=== PATIENT | male | born 1975 | race Hispanic/Latino ===

== ENCOUNTER 2017-01-05 06:25 | Day surgery (SDC) | payer OTHER ==
[2017-01-05] MEDS ORDERED: HURRICAINE ONE 20% TOPICAL SPRAY MM (07:53)
[2017-01-05] MEDS ORDERED: VERSED IV ONE ×2 (07:53→09:00)
[2017-01-05] MEDS ORDERED: SUBLIMAZE ONE (07:54)
[2017-01-05] MEDS ORDERED: NACL 0.9% 500 ML 500 ML IV SCH (08:00)
[2017-01-05] MEDS ORDERED: HURRICAINE ONE 20% TOPICAL SPRAY MM NR (09:00)
[2017-01-05] MEDS ORDERED: SUBLIMAZE IV ONE (09:00)
--- NOTE | 2017-01-05 09:53 | Short Stay Summary ---
Short Stay Documentation Date of service: 01/05/17 - History Past Medical History: No medical history Past Surgical History: No surgical history Social history: no significant social history - Allergies and Medications Current Medications: Allergies No Known Allergies Allergy (Unverified 06/14/16 11:34) Active Medications Benzocaine (Hurricaine One 20% Topical [place]) 3 spray MM PREOP NR Stop: 01/05/17 10:00 Last Admin: 01/05/17 08:39 Dose: 3 spray Sodium Chloride (Nacl 0.9% 500 Ml) 500 mls @ 50 mls/hr IV DIRECT VIRIDIANA Last Admin: 01/05/17 08:00 Dose: 50 mls/hr - Physical exam General appearance: no acute distress Integumentary: no rash Lungs: Clear to auscultation Breasts: deferred Heart: Regular rate Gastrointestinal: normal Male Genitourinary: deferred Female Genitourinary: deferred Rectal Exam: deferred Extremities: no ischemia Neurological: Normal gait - Brief post op/procedure progress note Date of procedure: 01/05/17 Pre-op diagnosis: Valvular disease Post-op diagnosis: same Procedure: MARINA Anesthesia: MAC Findings: See report Surgeon: XIN MONACO Estimated blood loss: none Pathology: none Condition: stable - Hospital course Hospital course: Uneventful - Disposition Condition at discharge: Good Disposition: DC-01 TO HOME OR SELFCARE Short Stay Discharge Plan Activity: advance as tolerated Weight Bearing Status: Partial Weight Bearing Diet: regular Follow up with: ELENA GRACIA MD [Primary Care Provider] - 7 Days Forms: MARINA Discharge Form
[2017-01-05 11:45] VITALS: BP 109/76
== END 2017-01-05 11:55 | disposition home or self-care (01) ==
LOC: OPU 06:25
PROVIDERS: ATTEND Internal Medicine
DX: I08.0 Rheumatic disorders of both mitral and aortic valves (principal); Z95.2 Presence of prosthetic heart valve; Z82.49 Family history of ischemic heart disease and other diseases of the circulatory system; Z83.3 Family history of diabetes mellitus
CPT/HCPCS: 93312; 93320; 93325; J2250; J3010; J7040

== ENCOUNTER 2017-01-17 06:01 | Day surgery (SDC) | payer OTHER ==
[2017-01-17] MEDS ORDERED: ECOTRIN PO ONE (06:21)
[2017-01-17] MEDS ORDERED: NACL 0.9% 500 ML 500 ML ONE (06:24)
[2017-01-17 06:50] LABS: Basophils % (Auto) 0.4 % (0.0-1.8); Eosinophils % (Auto) 0.8 % (0.0-4.3); Hematocrit 44.8 % (35.5-45.6); Hemoglobin 15.5 gm/dl (11.8-15.2); Mean Corpuscular HGB Conc 35 % (32-34); Mean Corpuscular Hemoglobin 31 pg (28-32); Mean Corpuscular Volume 89 fl (84-94); Platelet Count 165 K/mm3 (140-440); Red Blood Count 5.06 M/mm3 (3.65-5.03); Red Cell Distribution Width 13.4 % (13.2-15.2); White Blood Count 7.1 K/mm3 (4.5-11.0)
[2017-01-17 07:00] LABS: INR 0.91 (0.87-1.13)
[2017-01-17] MEDS ORDERED: NACL 0.9% 500 ML 500 ML IV SCH (07:00)
[2017-01-17 08:13] LABS: Anion Gap 19 mmol/L; BUN/Creatinine Ratio 15.71; Blood Urea Nitrogen 11 mg/dL (9-20); Carbon Dioxide 23 mmol/L (22-30); Chloride 103.5 mmol/L (98-107); Glucose 98 mg/dL (75-100); Potassium 4.4 mmol/L (3.6-5.0); Sodium 141 mmol/L (137-145)
[2017-01-17] MEDS ORDERED: HEPARIN/NS 5000 UNIT/500ML(CATH LAB) 1,000 ML IR ONE (08:37)
[2017-01-17] MEDS ORDERED: VERSED ONE (08:38)
[2017-01-17] MEDS ORDERED: XYLOCAINE 2% INFILTRATI ONE (08:38)
[2017-01-17] MEDS ORDERED: SUBLIMAZE ONE (08:38)
[2017-01-17] MEDS ORDERED: NITROGLYCERIN SYRINGE 0 ML ONE (08:38)
[2017-01-17] MEDS ORDERED: HEPARIN/NS 5000 UNIT/500ML(CATH LAB) 500 ML IR ONE (08:52)
--- NOTE | 2017-01-17 09:40 | Short Stay Summary ---
Short Stay Documentation Date of service: 01/17/17 - History H&P: obtained from office - Allergies and Medications Current Medications: Allergies No Known Allergies Allergy (Unverified 06/14/16 11:34) Home Medications Medication Instructions Recorded Confirmed Last Taken Type Aspirin [Aspirin TAB] 325 mg PO QDAY 01/17/17 01/17/17 01/16/17 History Active Medications Sodium Chloride (Nacl 0.9% 500 Ml) 500 mls @ 50 mls/hr IV DIRECT VIRIDIANA Stop: 01/17/17 16:59 Last Admin: 01/17/17 06:53 Dose: 50 mls/hr - Physical exam General appearance: no acute distress Integumentary: no rash HEENT: Atraumatic Lungs: Clear to auscultation Breasts: deferred Heart: Regular rate Gastrointestinal: normal Male Genitourinary: deferred Female Genitourinary: deferred Rectal Exam: deferred Extremities: no ischemia Neurological: Normal gait - Brief post op/procedure progress note Date of procedure: 01/17/17 Pre-op diagnosis: Severe MR and AR Post-op diagnosis: same Procedure: LHC, RHC and LV gram Anesthesia: MAC Findings: Severe MR, MS Severe AR (known from MARINA) and moderate Normal coronaries Surgeon: XIN MONACO Estimated blood loss: none Pathology: none Condition: stable - Hospital course Hospital course: Uneventful - Disposition Condition at discharge: Good Disposition: DC-01 TO HOME OR SELFCARE Short Stay Discharge Plan Activity: no driving until cleared by PCP (for 2 days) Weight Bearing Status: Non-Weight Bearing (for 2 days) Diet: low salt Wound: keep clean and dry Follow up with: ELENA GRACIA MD [Primary Care Provider] - 7 Days
[2017-01-17 12:15] VITALS: BP 111/74
--- NOTE | 2017-01-19 13:39 | Prelim Cardiac Cath Report ---
Preliminary Cath Report - Hemodynamic Findings Aorta(AO): 99/78 Left Ventricular(LV): 156 End Diastolic Pressure(EDP): 13 Right Atrial Pressure: 9 Right Ventricular Pressure (RV): 55 Pulmonary Artery Pressure(PA): 40 Pulmonary Artery Wedge Pressure: 23 Cardiac Output: 5.35 - Other Findings Estimated blood loss: minimal Dominance: right Estimated Ejection Fraction: 70 LV Contractility: Hyperdynamic Coronary Anatomy: Normal coronary circulation Post Diagnosis: Mitral stenosis - MVA 1.03 cm2, MG 13.2 mm Hg Mitral regurgitation - severe Aortic stenosis - JUAN 1.01 cm2, MG 37 mm Jh Severe aortic regurgitation (known by MARINA) Moderate pulmonary hypertension (TPG 17 mm Hg, PVR 3.17 PERRY) Normal coronary circulation Hyperdynamic LV function Recommendations: CABG (Mitral and aortic valve replacement)
--- NOTE | 2017-02-09 12:25 | Cardiac Catherization Report ---
LEFT AND RIGHT HEART CATHETERIZATION INDICATION FOR PROCEDURE: Valvular heart disease. ORDERING PHYSICIAN: Domenic Armstrong MD PROCEDURES PERFORMED: 1. Selective left and right coronary angiography. 2. Left ventriculography. 3. Right heart catheterization with hemodynamic measurement and oxygen saturation run. DESCRIPTION OF PROCEDURE: After obtaining written consent, the patient was draped using sterile technique. A 2% lidocaine was injected into the right groin. A 6-[place] vascular sheath was inserted into the right common femoral artery. A 7-[place] vascular sheath was inserted into the right common femoral vein. A 6-[place] JL4 catheter was used to selectively engage the left coronary artery. A 6-[place] JR4 catheter was used to selectively engage the right coronary artery. A 6-[place] double lumen pigtail catheter was used to perform a left ventriculogram and measured the gradient across the aortic valve. A 7-[place] catheter was used to measure right-sided hemodynamics and perform an oxygen saturation run. No complications occurred during the procedure. Hemostasis was achieved at the end of the procedure using 6-[place] Angio-Seal device. ESTIMATED BLOOD LOSS: Minimal. SPECIMEN REMOVED: None. FINDINGS: HEMODYNAMICS: 1. The mean pulmonary capillary wedge pressure was 23 mmHg. The left ventricular systolic pressure was 163 mmHg with a left ventricular end-diastolic pressure of 13 mmHg. The mean gradient across the mitral valve was measured at 13.2 mmHg with an estimated mitral valve area of 1.03 cm2. 2. Mean pulmonary artery pressure was 40 mmHg. The right ventricular systolic pressure was 55 mmHg with right ventricular end-diastolic pressure of 9 mmHg. 3. The mean right arterial pressure was 9 mmHg. 4. The aortic pressure was 99/78 with an LV systolic pressure of 163 mmHg. 5. The pulmonary artery saturation was 68%, right ventricular saturation 69%, right atrial saturation 69%, superior vena cava saturation is 66%, and aortic saturation is 92%. 6. The calculated cardiac output is 5.35 L per minute with a cardiac index of 2.74 L per minute per m2. 7. The calculated aortic valve area was 1.01 cm2 with the measured mean gradient across the left ventricular outflow tract of 37 mmHg. CARDIAC STRUCTURES: 1. The left ventricle is normal in size and systolic function. The left ventricular systolic function is hyperdynamic with an ejection fraction estimated between 65% and 70%. No regional wall motion abnormality detected. 2. Coronary circulation. 3. The left main is angiographically normal. 4. The LAD is angiographically normal. 5. The left circumflex artery is angiographically normal. 6. The right coronary artery is dominant and angiographically normal vessel. IMPRESSION: 1. Mitral stenosis with a mitral valve area of 1.03 cm2 and the mean gradient of 13.2 mmHg. 2. Evidence of severe mitral regurgitation. 3. Aortic stenosis with an aortic valve area of 1.01 cm2 and the mean gradient of 33 mmHg. 4. Severe aortic regurgitation known by transesophageal echocardiogram. 5. Moderate pulmonary hypertension with a mean PA pressure of 40 mmHg, transpulmonary gradient of 70 mmHg and the pulmonary vascular resistance of 3.17 [place] units. 6. Normal coronary circulation. 7. Hyperdynamic left ventricular function with an ejection fraction estimated between 65% and 70%. RECOMMENDATIONS: Cardiothoracic surgery consultation for mitral and aortic valve replacement. JOB# [id number] JAISON/JAYCEE
== END 2017-01-17 12:45 | disposition home or self-care (01) ==
LOC: OPU 06:01
PROVIDERS: ATTEND Internal Medicine
DX: I08.0 Rheumatic disorders of both mitral and aortic valves (principal); Z95.2 Presence of prosthetic heart valve
CPT/HCPCS: 36415; 80048; 85025; 85610; 85730; 93005; 93010; 93460; C1751; C1760; C1769; C1894; J1644; J2250; J3010; J7040; Q9967